=== PATIENT | female | born 1950 | race Caucasian/White ===

== ENCOUNTER 2022-11-26 05:00 | Inpatient (IN) | payer MEDICARE, OTHER ==
[~2022-11-26] VITALS: Ht 152.4 cm; Wt 100.7 kg
--- NOTE | 2022-11-26 05:24 | NUR ---
PATIENT WAS BIB RA FROM HOME FOR C/O SOB. ARRIVED ON O2 AT 8 LITER AND RECEIVING ALBUTEROL TREATMENT. PATIENT A, OX3. WAS PLACED IN ER BED 6 ON MONITOR, HAS AN EXISTING 20G IV LINE. BLOOD WAS DRAWN. WILL CONT TO MONITOR
--- NOTE | 2022-11-26 05:25 | NUR ---
COVID SWAB DONE
[2022-11-26 05:31] VITALS: BP 158/71
--- NOTE | 2022-11-26 05:36 | NUR ---
PLACED PATIENT ON O2 AT 4LPM VIA NC. SATTING 94%, REMAINED ON MONITOR
[2022-11-26] MEDS ORDERED: ACETAMINOPHEN ES 500 MG TABLET ONE (05:41)
[2022-11-26] MEDS ORDERED: ACETAMINOPHEN 325 MG TABLET PO ONE (06:00)
[2022-11-26 06:14] LABS: CALCIUM, SERUM 8.7 mg/dL (8.5-10.1); CARBON DIOXIDE 29 mmol/L (21-32); CREATININE 0.8 mg/dL (0.6-1.3); UREA NITROGEN, BLOOD 13 mg/dL (7-18)
[2022-11-26 06:15] LABS: BASOPHILS # (AUTO) 0.1 K/uL (0.0-0.2); BASOPHILS % (AUTO) 0.7 % (0.0-2.0); HEMATOCRIT 35 % (33-45); HEMOGLOBIN 11.1 g/dL (11.5-14.8); LYMPHOCYTES # (AUTO) 0.4 K/uL (0.8-4.8); LYMPHOCYTES % (AUTO) 4.6 % (20.0-44.0); MEAN CORPUSCULAR HGB CONC 32 g/dl (31.0-36.0); MEAN CORPUSCULAR VOLUME 82 fL (82-100); MONOCYTES # (AUTO) 0.9 K/uL (0.1-1.30); MONOCYTES % (AUTO) 9.1 % (2.0-12.0); NEUTROPHILS # (AUTO) 8.2 K/uL (1.8-8.9); NEUTROPHILS % (AUTO) 84.6 % (43.0-81.0); PLATELET COUNT (AUTO) 166 K/uL (150-450); RED BLOOD CELL COUNT(AUTO) 4.22 MIL/uL (4.0-5.2); WHITE BLOOD COUNT (AUTO) 9.7 K/uL (4.3-11.0)
[2022-11-26 06:26] LABS: ALANINE AMINOTRANSFERASE 43 U/L (12-78); ALBUMIN 3.3 g/dL (3.4-5.0); ALKALINE PHOSPHATASE 46 U/L (46-116); ASPARTATE AMINOTRANSFERASE 57 U/L (15-37); BILIRUBIN,DIRECT 0.2 mg/dL (0.0-0.2); BILIRUBIN,TOTAL 0.4 mg/dL (0.2-1.0); TOTAL PROTEIN, SERUM 7.5 g/dL (6.4-8.2)
[2022-11-26 06:29] LABS: CHLORIDE 97 mmol/L (98-107); GLUCOSE 323 mg/dL (74-106); SODIUM SERUM 133 mmol/L (136-145)
[2022-11-26] MEDS ORDERED: IPRATROPIUM NEB FS 0.5 MG/2.5 ML AMPUL.NEB NEB ONE (06:30)
[2022-11-26] MEDS ORDERED: ALBUTEROL FS 2.5 MG/3 ML VIAL.NEB CONTNEB ONE (06:30)
[2022-11-26] MEDS ORDERED: methylPREDNISolone SOD SUCC 125 MG/2ML VIAL IV ONE (06:30)
[2022-11-26] MEDS ORDERED: CEFTRIAXONE 1GM BAG (ER ONLY) 50 ML IV ONE ×2 (06:30→06:58)
[2022-11-26] MEDS ORDERED: AZITHROMYCIN 500 MG in IV D5W 250 ML IV ONE (06:30)
[2022-11-26] MEDS ORDERED: methylPREDNISolone SOD SUCC 125 MG/2ML VIAL ONE (06:58)
[2022-11-26] MEDS ORDERED: IV NS 0.9% 1,000 ML BAG IV ONE (07:30)
--- NOTE | 2022-11-26 07:32 | NUR ---
PANEL ON-CALL PAGED
[2022-11-26] MEDS ORDERED: IPRATROPIUM BROMIDE 14 GM INHALER (or 12.9 GM) IH PRN (08:00)
[2022-11-26] MEDS ORDERED: ALBUTEROL SULFATE 8 GM HFA.AER.AD IH ONE (08:00)
[2022-11-26] MEDS ORDERED: VERA180T11 PO (08:45)
[2022-11-26] MEDS ORDERED: ATEN50TA PO (08:45)
[2022-11-26] MEDS ORDERED: LORA-259 PO (08:45)
[2022-11-26] MEDS ORDERED: LINA1TAB7 PO (08:45)
[2022-11-26] MEDS ORDERED: ROSU20TA32 PO (08:45)
[2022-11-26] MEDS ORDERED: HYDR-4077 PO (08:45)
[2022-11-26] MEDS ORDERED: GLIM2TAB31 PO (08:45)
[2022-11-26] MEDS ORDERED: LOSA1TAB42 PO (08:45)
[2022-11-26] MEDS ORDERED: ESCI20TA PO (08:45)
[2022-11-26] MEDS ORDERED: ESOM40CA52 PO (08:45)
[2022-11-26] MEDS ORDERED: ZOLP5TAB8 PO (08:45)
[2022-11-26] MEDS ORDERED: MECL-185 PO (08:45)
[2022-11-26] MEDS ORDERED: DEXTROSE 50%-WATER 50 ML DISP.SYRIN IV PRN (09:00)
[2022-11-26] MEDS ORDERED: ZOLPIDEM TARTRATE 5 MG TABLET PO PRN (09:00)
[2022-11-26] MEDS ORDERED: ONDANSETRON HCL/PF 4 MG/2 ML VIAL IVP PRN (09:00)
[2022-11-26] MEDS ORDERED: MAGNESIUM HYDROXIDE 30 ML UDC PO PRN (09:00)
[2022-11-26] MEDS ORDERED: *INSULIN REGULAR(HUMULIN R)HUM 100 UNIT/ML VIAL SQ PRN (09:00)
[2022-11-26] MEDS ORDERED: MAG HYDROX/AL HYDROX/SIMETH 30 ML UDC PO PRN (09:00)
[2022-11-26] MEDS ORDERED: ACETAMINOPHEN 325 MG TABLET PO PRN (09:00)
[2022-11-26] MEDS ORDERED: Z GUARD REMEDY 4 OZ OINT TP PRN (09:00)
[2022-11-26] MEDS ORDERED: INSULIN REGULAR, HUMAN 100 UNIT/ML 3 ML VIAL SQ PRN (09:00)
--- NOTE | 2022-11-26 09:01 | NUR ---
ROOM 104
[2022-11-26] MEDS ORDERED: PANTOPRAZOLE 40 MG TABLET.DR PO SCH (09:45)
[2022-11-26] MEDS ORDERED: LOSARTAN/HCTZ 50-12.5MG/ 1 EA TABLET PO SCH (09:48)
[2022-11-26] MEDS ORDERED: LOSARTAN POTASSIUM 50 MG TABLET PO SCH (09:48)
--- NOTE | 2022-11-26 10:10 | NUR ---
moved to inpatient room safely per acls protocol, Assigned nurse is not ready to get the report over the phone after calling her twice. tried to give report at bedside but still unavailable.
--- NOTE | 2022-11-26 10:45 | NUR ---
RN AMA discharge note er did not give report and brought up patient. pt is covid positive. pt daughter wants to stay in room and if not allowed to stay will leave AMA. explained safety protocol regarding covid patients. pt daughter still refused.pt signed AMA paperwork. provided education, pt daughter verbalized understanding. escorted out by wheelchair and nursing coordinator. pt left in stable condition
[2022-11-26] MEDS ORDERED: REMDESIVIR (CHARGED) 200 MG, *LOADING DOSE 1 EA in IV NS 0.9% 210 ML IV ONE (11:00)
[2022-11-26] MEDS ORDERED: ENOXAPARIN SODIUM 40 MG/0.4 ML DISP.SYRIN SQ SCH (11:00)
[2022-11-26] MEDS ORDERED: BLOOD SUGAR DIAGNOSTIC 1 EACH STRIP VI SCH (12:00)
[2022-11-26] MEDS ORDERED: hydrALAZINE HCL 50 MG TABLET PO SCH (17:00)
[2022-11-26] MEDS ORDERED: ATENOLOL 50 MG TABLET PO SCH (17:00)
[2022-11-26] MEDS ORDERED: VERAPAMIL SR 180 MG CAP PO SCH (21:00)
[2022-11-26] MEDS ORDERED: ATORVASTATIN 40 MG TABLET PO SCH (22:00)
[2022-11-27] MEDS ORDERED: DEXAMETHASONE SOD PHOSPHATE 10 MG/ML VIAL IV SCH (09:00)
[2022-11-27] MEDS ORDERED: CEFTRIAXONE 1 G in IV D5W 50 ML IV SCH (09:00)
[2022-11-27] MEDS ORDERED: ESCITALOPRAM OXALATE (10 MG) 10 MG TABLET PO SCH (09:00)
[2022-11-27] MEDS ORDERED: REMDESIVIR (CHARGED) 100 MG in IV NS 0.9% 100 ML IV SCH (11:00)
== END 2022-11-26 10:00 | disposition left against medical advice (07) | DRG 871 ==
LOC: ER 05:08 → TELE1 09:21
PROVIDERS: ADMIT Nurse Practitioner Acute Care; ATTEND Nurse Practitioner Acute Care
PROC: XW033E5 Introduction of Remdesivir Anti-infective into Peripheral Vein, Percutaneous Approach, New Technology Group 5 (ICD-10-PCS; principal; 2022-11-26)
DX: A41.89 Other specified sepsis (principal); I50.33 Acute on chronic diastolic (congestive) heart failure; J12.82 Pneumonia due to coronavirus disease 2019; U07.1 COVID-19; J96.01 Acute respiratory failure with hypoxia; J15.9 Unspecified bacterial pneumonia; E87.1 Hypo-osmolality and hyponatremia; Z68.41 Body mass index [BMI] 40.0-44.9, adult; R65.20 Severe sepsis without septic shock; E78.5 Hyperlipidemia, unspecified; E11.9 Type 2 diabetes mellitus without complications; Z28.310 Unvaccinated for COVID-19; J45.909 Unspecified asthma, uncomplicated; F17.210 Nicotine dependence, cigarettes, uncomplicated; K21.9 Gastro-esophageal reflux disease without esophagitis; F17.200 Nicotine dependence, unspecified, uncomplicated; Z79.84 Long term (current) use of oral hypoglycemic drugs; Z79.899 Other long term (current) drug therapy; F41.9 Anxiety disorder, unspecified; F32.A Depression, unspecified; G47.00 Insomnia, unspecified; E66.01 Morbid (severe) obesity due to excess calories; G47.33 Obstructive sleep apnea (adult) (pediatric); E88.09 Other disorders of plasma-protein metabolism, not elsewhere classified; I11.0 Hypertensive heart disease with heart failure
CPT/HCPCS: 36415; 71045-TC; 80048-TC; 80076-TC; 83605-TC; 83880; 84484-TC; 85025-TC; 85730-TC; 87040-TC; 87081-TC; C9803; G0378; J0456; J0696; J1815; J2930; J7060